=== PATIENT | male | born 1955 | race Caucasian/White ===

== ENCOUNTER 2018-12-18 15:47 | Outpatient (RCR) | payer OTHER, SELFPAY ==
[2018-12-12 18:00] VITALS: BMI 49.4
== END 2018-12-27 23:59 ==
LOC: NS 15:47
PROVIDERS: Visit Provider Physician Assistant
DX: E66.9 Obesity, unspecified (principal); Z71.3 Dietary counseling and surveillance
CPT/HCPCS: 97802

== ENCOUNTER 2019-01-05 09:51 | Day surgery (SDC) | payer OTHER, SELFPAY ==
[2018-12-01 15:01] VITALS: BMI 49.4
--- NOTE | 2018-12-12 06:07 | HP_ITS ---
Intake Vital Signs 12/12/18 Body Mass Index (BMI) 49.4 Intake Visit Reasons: discuss phlebectomy Chief Complaint: discuss phlebectomy Ethnographer Required: No Is patient in pain?: No Allergies ceftriaxone [From Rocephin] Allergy (Intermediate, Verified 12/12/18 15:46) Hives Medications alprazolam 0.5 mg tablet 0.5 mg PO TID tab 12/01/18 [History Confirmed 12/12/18] carvedilol 3.125 mg tablet 3.125 mg PO BID 12/01/18 [History Confirmed 12/12/18] furosemide 40 mg tablet 40 mg PO DAILY 12/01/18 [History Confirmed 12/12/18] hydrocodone 5 mg-acetaminophen 325 mg tablet 1 tab PO BID tab 12/01/18 [History Confirmed 12/12/18] lisinopril 2.5 mg tablet 2.5 mg PO DAILY 12/01/18 [History Confirmed 12/12/18] omeprazole 20 mg tablet,delayed release 20 mg PO DAILY 12/01/18 [History Confirmed 12/12/18] rivaroxaban 20 mg tablet 20 mg PO DAILY 12/01/18 [History Confirmed 12/12/18] spironolactone 25 mg tablet 12.5 mg PO DAILY tab 12/01/18 [History Confirmed 12/12/18] [facility] Medical History Stasis dermatitis of right lower extremity due to peripheral venous hypertension (Acute) Acid reflux (Acute) Anxiety (Acute) Arthritis (Acute) Atrial fibrillation (Acute) Heart disease (Acute) History of blood clots (Acute) Obesity (Acute) Hypertension (Chronic) Surgical History History of total left knee replacement (Acute) history biteral vein stripping (Acute) history lateral heel spur removal (Acute) Family History Sister Arthritis Breast cancer Diabetes Father Cancer Lung cancer CVA (cerebral vascular accident) Mother Heart disease Hypertension Social History (Updated 12/12/18 @ 18:07 by Luis Huddleston MD) Smoking Status: Current every day smoker alcohol intake: current substance use type: does not use HPI HPI HPI: JOLIE RÍOS, is a 63 M who presents to the office today for HPI HPI Surgical H&P: Yes HPI: JOLIE RÍOS, is a 63 M who presents to the office today for HPI: JOLIE RÍOS, is a 63 M who presents to the office today for surgical consultation regarding a focus of stasis dermatitis involving his right anterior knee. The patient is referred by Dr. Bertrand Lebron. The patient is being considered for a right total knee replacement. Body weight is 335 pounds with a BMI of 49.4. He has had a previous left total knee replacement. There is a vertical midline incision at that location. A written copy of my surgical note will return to Dr. Lebron There is felt to be a vascular skin lesion involving the infrageniculate area of the right knee. It is requested that this 2 x 2 centimeter area of erythema be evaluated prior to knee replacement. The patient states that he has had some previous venous work with what sounds like a degree of vein ligation and stripping. ROS General General: No weight change, appetite, fatigue, colon cancer, breast cancer or weakness HEENT HEENT: No difficulty swallowing, eye injury, eye surgery, swollen glands or hoarseness Endo Endocrine: No thyroid disease, diabetes mellitus, thyroid cancer, Hair loss, heat intolerance or cold intolerance Skin Skin: No rash or changing moles Breast Breast: No left breast lump, right breast lump, nipple discharge, breast pain, abnormal mammogram, abnormal US or breast enlargement Musc Musculoskeletal: Yes arthritis; no back problems, rheumatoid arthritis, gout or joint pain Cardio Cardiovascular: Yes heart disease, atrial fibrillation and high blood pressure; no murmur, pacemaker, heart attack, heart stent, palpitations, shortness of breat with exertion or chest pain Psych Psychiatric: Yes anxiety; no depression or hearing voices Resp Respiratory: No shortness of breath, No sleep apnea, No cough, No COPD, No asthma, No emphysema, No wheezing Gastro Gastrointestinal: No abdominal pain, No nausea or vomiting, No diarrhea, No constipation, No blood in stool, Yes acid reflux, No hemorrhoids, No ulcers, No gallbladder problem, No black,tarry stools Phill Hematologic: Yes blood thinners, No blood disorders, No bleeding, No anemia, Yes blood clots Neuro Neurologic: No weakness Exam Const General: cooperative Nutritional Appearance: obese morbidly obese Orientation: alert, awake, oriented x3 Chest Breast Palpation: No nipple discharge Other: Increased anterior posterior diameter Resp Other: Scattered wheeze noted particularly on the right Cardio Rate: regular rate Rhythm: regular rhythm Heart Sounds: no murmurs GI Other: Markedly overweight no internal organs can be appreciated Extrem Other: Markedly overweight bilateral lower extremities with nonpitting 2+ edema at the ankles. Multiple areas of varicosities involving the thighs and lower extremities. 2 x 2 cm diameter skin lesion with slight keratosis inferior and slightly lateral to the right knee and patella Assessment & Plan Problems 1. Stasis dermatitis of right lower extremity due to peripheral venous hypertension I87.321 Plan 1. Stasis dermatitis of right lower extremity due to peripheral venous hypertension I87.321 Plan Focal area of suspected stasis dermatitis of right lower extremity. I do not have a means of uncomplicated resolution of this area. Patient has a BMI of 49.4. He has multiple areas of varicosities with lichenification of his skin. I suspect that this area likely harbors staff. It is not feasible because of its size to attempt an excision. Certainly he could be referred to dermatology but I suspect topical treatment of this area also would be difficult to achieve resolution. He has a significant conglomerate of varicosities involving all parts of his lower extremity extending around the knee the patella area the infrageniculate area. It would be very difficult to determine what is actually supplying this area. One could attempt a expiration superior to this with some stab phlebotomy but again I have instructed the patient that I have no way of knowing whether this would make any improvement whatsoever. Although I am not concerned regarding hemorrhage regarding this lesion I would be more concerned about chronic infection. I do not have an uncomplicated resolution. I have contacted Dr. Bertrand Lebron. He does not believe that there is any means feasible to perform the knee replacement procedure and keep the incision away from this area of stasis dermatitis. He has similar concerns as to I regarding the risk of infection. He does not believe that a robotic approach will add any benefit. I explained this to the patient in detail today. The only offering I have for the patient is to consider ultrasound inspection at the time of surgery with anticipated phlebectomy of veins involved in the area of the stasis dermatitis. I have discussed with him the technique, benefit, risks, alternatives. Absolutely no guarantees of success or improvement is being offered. The patient and Dr. Bertrand Lebron are well aware that this may or may not assist with improving this area. The patient has had an opportunity to ask and have questions answered. Again I will recommend to the patient dermatology consultation in the interim. The patient desires to schedule proceed with an attempt at surgical removal of local vein clusters. His Xarelto will have to be held 48 hours preintervention. CC: Dr. Bertrand Huddleston M.D., F.A.C.S. Coding Level of Care Code Off vis,est,level 2 Diagnoses Stasis dermatitis of right lower extremity due to peripheral venous hypertension I87.321 12/12/18 1807 <Electronically signed by Luis barron MD> Date _ Luis Huddleston MD I have re-examined the patient. There are no clinical changes since date of exam.
[2018-12-12 18:00] VITALS: BMI 49.4
--- NOTE | 2019-01-01 15:35 | EKG12_ITS ---
Test Reason : PRE OP Blood Pressure : / mmHG Vent. Rate : 076 BPM Atrial Rate : 081 BPM P-R Int : 000 ms QRS Dur : 080 ms QT Int : 362 ms P-R-T Axes : 000 021 013 degrees QTc Int : 407 ms Atrial fibrillation with premature ventricular or aberrantly conducted complexes Nonspecific ST abnormality , probably digitalis effect Abnormal ECG Confirmed by OSCAR ROTH ([id number]), food expeditor GAYATHRI SOUZA ([id number]) on 01/03/2019 3:13:13 PM Referred By: Luis Huddleston Confirmed By:OSCAR ROTH
[2019-01-01 16:20] LABS: Hematocrit 41.5 % (40-54); Hemoglobin 14.4 g/dL (13.0-16.5); Mean Corp Hgb Conc 34.7 g/dL (32-36); Mean Corpuscular Volume 100.7 fL (80-94); Mean Platelet Vol. 9.6 fl (6.2-12.0); Platelet Count 175 K/mm3 (150-450); RBC Distribution Width CV 13.1 % (11.6-14.6); RBC Distribution Width SD 48.6 fl (35.1-43.9); Red Blood Count 4.12 M/mm3 (4.6-6.2); White Blood Count 7.5 K/mm3 (4.4-11.0)
[2019-01-01 16:59] LABS: Anion Gap 6 (5-15); BUN 31 mg/dL (7-18); BUN/Creat Ratio 18.6 RATIO (10-20); Calcium,Total 9.1 mg/dL (8.5-10.1); Chloride 100 mmol/L (98-107); Creatinine, Serum 1.67 mg/dL (0.70-1.30); EST Glomerular Filtration Rate 44 mL/min (>60); Est Glom Filt Rate - Afr Amer 54 mL/min (>60); Glucose 90 mg/dL (74-106); Potassium 3.8 mmol/L (3.5-5.1); Sodium Level 135 mmol/L (136-145)
[2019-01-05 10:22] VITALS: BP 129/68; PULSE 54; RESP 18; TEMP 36.3; O2SAT 99; BMI 49.6
--- NOTE | 2019-01-05 12:00 | VE_PTH ---
PATIENT: JOLIE RÍOS LOC: [facility] U#:[id number] AGE/SX: 63/M ROOM: RE01/05/[address]: Dr. Luis Huddleston MD : 1955 BED: DIS: 01/05/2019 SPEC #: [id number] RECD: 01/05/19 14:46 STATUS: FRANC RECharlene #: [id number] BLAS: 01/05/19 12:[address]: Luis Huddleston DEPT: SURGICAL PATHOLOGY RECD BY: Gonzalez Cobb ENTERED: 01/08/19 10:19 SP TYPE: VEIN(S) CHANDA DR: Dr. [place] DO Tissues: Vein, NOS Procedures: Surgery Specimen Level III HEADER OPERATION: Right lower extremity pretibia stab phlebectomy PRE-OP DIAGNOSIS: Stasis dermatitis of right lower extremity due to peripheral venous hypertension TISSUE SUBMITTED: Right lower leg vein segments MICROSCOPIC DIAGNOSIS Right lower leg vein segments, vein stripping: Ectatic segments of vein. AM:damaso 01/09/19 COMMENT The findings are consistent with varicose veins. Clinical correlation is suggested. MICROSCOPIC DESCRIPTION Slides are reviewed. GROSS DESCRIPTION Received in fixative is one container labeled with the patient's name and designated right lower leg vein segments. The specimen consists of two irregular fragments of light to dark joshi soft tissue that in aggregate measure 1.7 x 1.5 x 0.3 cm. The specimen is sectioned and totally submitted in one cassette. / AM:damaso 01/08/19 TC:5 CPT: 79198
[2019-01-05] MEDS: Bupivacaine Mpf 0.5% 30 ML VIAL (13:21)
--- NOTE | 2019-01-05 13:26 | OP.PCM_ITS ---
Problem List (1) Stasis dermatitis of right lower extremity due to peripheral venous hypertension Status: Acute Report of Operation Date of Procedure: 01/05/19 Pre-Operative Diagnosis: Stasis dermatitis right pretibial Post-Operative Diagnosis: Same Surgery/Procedure Performed:: Microphlebectomy right pretibial leg Description of Surgical Findings:: Timeout and informed consent was obtained. 63-year-old gentleman was taken to the operating room. He was placed on the table. Clindamycin 900 mg are given intravenous preoperatively. He underwent general anesthesia. The right pretibi al area was sterilely prepped and draped. He has an area of stasis dermatitis that is prohibiting a total knee replacement. Small stab incisions were created. I performed this after iodine ultrasound localization which I thought demonstrated defeating superficial veins. Using mosquito clamps and hemostats I did a microphlebectomy of the engorged veins and varicose veins particularly beneath the lesion. I felt that I had good clearance. 5 separate incisions were created. Specimens were submitted for analysis. The wounds were closed with interrupted 4-0 Monocryl subdermal stitches. The yudelka-incisional was anesthetized 0.5% Marcaine a total of 30 cc was used. Steri-Strips Telfa and OpSite dressings applied followed by KALYANI support hose. Sponge and instrument and needle counts were reported the surgeon be correct. Blood loss minimal. The patient was taken to the recovery area in satisfactory condition without apparent complication. Specimen fragments of vein. Drains none. Blood loss minimal. Luis Huddleston M.D., F.A.C.S. Type of Anesthesia:: General Anesthesiologist: Jaya Valdez
--- NOTE | 2019-01-05 13:29 | DCINST_ITS ---
Discharge Diet: Light diet - advance as tolerated - if you have questions about your diet instructions, please talk to you doctor. Discharge Activity: May Not Drive - for 3-5 days or while taking narcotic pain medicine. May shower in (days): 3 Lifting Restrictions: 10 pounds Call your doctor if your incision/area has: Continuous Slow Oozing, Sudden Increased Bleeding, Increased Pain/ Swelling, Increased Redness, Foul Smelling Discharge Call your doctor if you observe: Fever of 101 or Higher Suture Line Care: Avoid Pulling/Pushing, Avoid Pinching/Bending Additional Dressing/Incision Instructions:: Elevate your right leg to improve clot comfort and limit swelling and avoid bleeding. Please utilize your support hose [id number] if you can tolerate. You may remove the support hose if you have the sense that they are too tight. Allergies/Adverse Reactions: Allergies ceftriaxone [From Rocephin] Allergy (Intermediate, Verified 01/05/19 10:08) Hives Medications to take at Discharge alprazolam 0.5 mg tablet 0.5 mg PO TID PRN tab 12/01/18 carvedilol 3.125 mg tablet 3.125 mg PO BID 12/01/18 furosemide 40 mg tablet 40 mg PO DAILY 12/01/18 hydrocodone 5 mg-acetaminophen 325 mg tablet 1 tab PO BID PRN tab 12/01/18 lisinopril 2.5 mg tablet 2.5 mg PO QHS 12/01/18 omeprazole 20 mg tablet,delayed release 20 mg PO DAILY 12/01/18 rivaroxaban 20 mg tablet 20 mg PO DAILY 12/01/18 spironolactone 25 mg tablet 12.5 mg PO DAILY tab 12/01/18 Primary Care Physician: [place] [Primary Care Provider] - Test Results: Test results from this visit will be discussed in further detail at your follow- up appointment, if applicable. Please Follow Up With: Luis Huddleston MD - [phone] When: Call to make an appointment to be seen in about 10 days.
[2019-01-05 13:32] VITALS: BP 108/61; BP 129/68; PULSE 59; RESP 16; TEMP 36.2; O2SAT 99
[2019-01-05 13:40] VITALS: BP 108/61; BP 129/68; PULSE 55; RESP 14; O2SAT 97
[2019-01-05 13:46] VITALS: BP 104/65; BP 129/68; PULSE 51; RESP 16; O2SAT 98
[2019-01-05 13:54] VITALS: BP 129/68; BP 96/64; PULSE 52; RESP 14; TEMP 36.2; O2SAT 97
[2019-01-05 14:27] VITALS: BP 112/46; BP 129/68; PULSE 61; RESP 18; TEMP 36.3; O2SAT 98
== END 2019-01-05 14:35 | disposition home or self-care (01) ==
LOC: SDC 09:53 → AC 09:54
PROVIDERS: Family Provider Family Medicine; PCP Family Medicine; Referring Provider Surgery; Visit Provider Surgery
PROC: (CPT 37799; principal; 2019-01-05 11:45)
DX: I87.321 Chronic venous hypertension (idiopathic) with inflammation of right lower extremity (principal); I87.2 Venous insufficiency (chronic) (peripheral); Z88.1 Allergy status to other antibiotic agents; F17.200 Nicotine dependence, unspecified, uncomplicated; Z68.42 Body mass index [BMI] 45.0-49.9, adult; Z96.652 Presence of left artificial knee joint; I48.91 Unspecified atrial fibrillation; E66.9 Obesity, unspecified
CPT/HCPCS: 01520; 37799; 36415; 80048; 85027; 88304; 93005; J7120; J2405

== ENCOUNTER 2019-01-16 09:00 | Outpatient (RCR) | payer OTHER, SELFPAY ==
[2018-12-12 18:00] VITALS: BMI 49.4
== END 2019-01-27 23:59 ==
LOC: NS 09:00
PROVIDERS: Visit Provider Physician Assistant
DX: E66.9 Obesity, unspecified (principal); Z71.3 Dietary counseling and surveillance
CPT/HCPCS: 97803

== ENCOUNTER 2019-02-20 09:00 | Outpatient (RCR) | payer OTHER, SELFPAY | END 2019-02-26 23:59 | LOC: NS 09:00 | PROVIDERS: Family Provider Family Medicine; PCP Family Medicine; Visit Provider Physician Assistant | DX: E66.9 Obesity, unspecified (principal); Z71.3 Dietary counseling and surveillance | CPT/HCPCS: 97803 ==

== ENCOUNTER 2019-03-19 09:00 | Outpatient (RCR) | payer OTHER, SELFPAY | END 2019-03-29 23:59 | LOC: NS 09:00 | PROVIDERS: Family Provider Family Medicine; PCP Family Medicine; Visit Provider Physician Assistant | DX: E66.9 Obesity, unspecified (principal); Z71.3 Dietary counseling and surveillance | CPT/HCPCS: 97803 ==

== ENCOUNTER 2019-04-10 08:53 | Outpatient (RCR) | payer OTHER, SELFPAY ==
[2019-04-05 07:28] VITALS: BMI 49.6
== END 2019-04-10 23:59 | disposition home or self-care (01) ==
LOC: NS 08:53
PROVIDERS: Family Provider Family Medicine; PCP Family Medicine; Visit Provider Physician Assistant
DX: Z71.3 Dietary counseling and surveillance (principal); E66.9 Obesity, unspecified
CPT/HCPCS: 97803

== ENCOUNTER 2019-04-30 07:26 | Observation (INO) | payer OTHER, SELFPAY ==
[2019-04-11 11:20] VITALS: BP 131/74; PULSE 67; RESP 18; TEMP 36.1; O2SAT 99; BMI 46.4
--- NOTE | 2019-04-11 11:51 | SDCEKG_ITS ---
Test Reason : Blood Pressure : / mmHG Vent. Rate : 055 BPM Atrial Rate : 394 BPM P-R Int : 000 ms QRS Dur : 084 ms QT Int : 430 ms P-R-T Axes : 000 015 031 degrees QTc Int : 411 ms Atrial fibrillation with slow ventricular response with premature ventricular or aberrantly conducted complexes Abnormal ECG Confirmed by MARCOS MYERS, SARIKA ([id number]), map editor ATL OLVERA ([id number]) on 04/18/2019 2:13:00 PM Referred By: Rama Donato Confirmed By:SARIKA RODRÍGUEZ MD
--- NOTE | 2019-04-11 12:25 | RAD_ITS ---
STUDY: X-RAY CHEST REASON FOR EXAM: Male, 63 years old. Hypertension and wheezing. TECHNIQUE: PA and lateral views of the chest. COMPARISON: None. FINDINGS: Hyperinflation. The lungs are clear. There is no demonstrated pleural abnormality. Normal size heart. Normal mediastinum and romel. Normal visualized pulmonary arteries. There is atherosclerotic tortuosity of the aortic arch and descending thoracic aorta. There are diffuse degenerative changes of the visualized thoracic spine. Normal visualized ribs, clavicles, and shoulders. There is no demonstrated abnormality of the visualized soft tissue structures of the upper abdomen. RAD/Chest PA and Lateral IMPRESSION: Hyperinflation. Electronically Signed: Jamel Evans, at 13:16 EST , Service support ,
[2019-04-11 12:35] LABS: Hematocrit 42.1 % (40-54); Hemoglobin 13.9 g/dL (13.0-16.5); Mean Corpuscular Hgb 33.9 pg (27.0-32.0); Mean Corpuscular Volume 102.7 fL (80-94); Mean Platelet Vol. 9.4 fl (6.2-12.0); Platelet Count 169 K/mm3 (150-450); RBC Distribution Width CV 12.7 % (11.6-14.6); RBC Distribution Width SD 47.5 fl (35.1-43.9); White Blood Count 6.3 K/mm3 (4.4-11.0)
[2019-04-11 13:06] LABS: Anion Gap 5 (5-15); BUN 19 mg/dL (7-18); BUN/Creat Ratio 18.3 RATIO (10-20); Calcium,Total 8.9 mg/dL (8.5-10.1); Chloride 103 mmol/L (98-107); Creatinine, Serum 1.04 mg/dL (0.70-1.30); EST Glomerular Filtration Rate 77 mL/min (>60); Est Glom Filt Rate - Afr Amer 93 mL/min (>60); Estimated Creatinine Clearance 75.07 ml/min; Glucose 94 mg/dL (74-106); Potassium 3.9 mmol/L (3.5-5.1); Sodium Level 136 mmol/L (136-145)
[2019-04-29 00:22] VITALS: BMI 49.6
[2019-04-30] VITALS (10 sets, daily range): BP systolic 104–128; BP diastolic 48–95; PULSE 55–89; RESP 16–18; TEMP 36.3–37.1; O2SAT 93–100; BMI 46.4
[2019-04-30 06:15] LABS: Bedside Glucose 84 mg/dL (70-110)
[2019-04-30] MEDS: Scopolamine 1mg/72hr Patch 1 PATCH TRANSDERM. (06:15)
[2019-04-30] MEDS: Gabapentin 600 MG Tablet PO (06:15)
[2019-04-30] MEDS: Acetaminophen 500 MG Tablet 1000 MG PO ×3 (06:15→22:34)
[2019-04-30] MEDS: Magnesium Sulfate 4gm/100mL 4 GM/100 ML IV.SOLN. IV (06:56)
[2019-04-30] MEDS: Lactated Ringers 1,000 ML 100 ML IV (06:57)
--- NOTE | 2019-04-30 07:15 | KNEE_PTH ---
PATIENT: JOLIE RÍOS LOC: [facility] U#:[id number] AGE/SX: 63/M ROOM: [facility] RE04/30/[address]: Dr. Bertrand Lebron MD : 1955 BED: 1 DIS: 05/01/2019 SPEC #: [id number] RECD: 04/30/19 10:53 STATUS: FRANC REQ #: [id number] BLAS: 04/30/19 07:[address]: Bertrand Lebron DEPT: SURGICAL PATHOLOGY RECD BY: Otoniel Sibley ENTERED: 04/30/19 11:32 SP TYPE: TOTAL KNEE OTHR DR: Dr. [place], [place], [place] Tissues: Knee, NOS Procedures: Decalcification bone/plaque Surgery Specimen Level IV HEADER OPERATION: Total knee replacement PRE-OP DIAGNOSIS: Right knee primary osteoarthritis TISSUE SUBMITTED: Bone and soft tissue right knee MICROSCOPIC DIAGNOSIS Bone and soft tissue, right knee, total knee replacement/resection: Pieces of bone with degenerative osteoarthritic changes. Fibroadipose tissue, fibroconnective tissue and reactive synovial tissue. NEDRA:damaso 05/03/19 MICROSCOPIC DESCRIPTION Slides are reviewed. GROSS DESCRIPTION Received is one container designated bone and soft tissue right knee. The specimen consists of multiple fragments of joshi-yellow bone measuring in aggregate 12 x 13 x 4 cm. Also in the specimen container are multiple fragments of yellow-white soft tissue measuring in aggregate 9.5 x 7 x 3 cm. A number of bony fragments contain articular surfaces consistent with tibial plateau and femoral condyle and displaying prominent osteophyte formation, eburnation, and bone erosion. Fifth Hand sections are submitted in two cassettes as follows: 1 - soft tissue, 2 - bone after decalcification. / NEDRA:damaso 04/30/19 TC:5 CPT: 56959, 68427
--- NOTE | 2019-04-30 07:28 | RAD_ITS ---
STUDY: X-RAY - RIGHT KNEE REASON FOR EXAM: Male, 63 years old. Total knee replacement. TECHNIQUE: AP and lateral view(s) of the knee. COMPARISON: None. FINDINGS: Normal visualized distal femur. Normal visualized proximal tibia and fibula. Normal proximal tibiofibular articulation. The patient is status post total knee replacement. There is good alignment. Postoperative soft tissue changes. RAD/Knee 1 or 2 Views IMPRESSION: Status post right total knee replacement. There is good alignment. Postoperative soft tissue changes. Electronically Signed: Jamel Evans, at 13:38 EST , Service support ,
--- NOTE | 2019-04-30 09:11 | PRO.PCM_ITS ---
Procedure Report Date of Procedure: 04/30/19 Preoperative diagnosis: 6 knee severe primary osteoarthritis Postoperative diagnosis: Same Title of procedure : [Right] total knee replacement Surgeon: Bertrand Lebron MD Power And Recovery Supervisor: Rama Donato PA-C Anesthesia: General, adductor canal nerve block Anesthesiologist: Dr. Segura Special medications: Ancef, tranexamic acid wash, Decadron Indications for surgery: Patient is a [63]-year-old [male] with a history of knee arthritis appropriately treated and failed conservative measures and wished to proceed with total knee replacement. Patient was cleared for surgery by the medical doctor and has been evaluated by the anesthesia staff Findings: Intraoperative findings showed severe arthritis of the knee. Patient underwent knee replacement using Zadspacen total knee components. Size [8] femur, size [8] tibia, [35X10] asymmetric X3 patella, size [8-11 PS] X3 tibial polyethylene insert, knee was nicely balanced. Patella tracked well. Patient underwent standard wound closure in layers. Vicryl and strata fix sutures utilized. video library assistant, physician liaison inspection laboratory assistant, was utilized throughout the entire procedure. They were vital in helping with patient positioning, holding of retractors, exposing the tissues adequately for safe completion of the procedure including cutting of the bone, helping magistrate judge appropriate alignment and sizing of the components, implantation of the components, as well as wound closure, bandage application, and safe patient transfer. Without hand frame surgical elastic knitter, physician liaison inspection laboratory assistant, surgical time would have been significantly increased, and surgical outcome could have been less optimal. Description of procedure: The patient was taken to the OR, transferred to the OR table. They were given a spinal anesthetic. Ancef was given IV preoperatively. Tranexamic acid was given IV preoperatively. Well-padded tourniquet was applied to the upper thigh of the operative leg. Nonoperative leg had a KALYANI hose and SCD on throughout. Operative limb was prepped padded and draped in usual orthopedic sterile fashion for the procedure. We began by injecting the pain relieving solution in the anterior superior aspect of the knee region. The limb was exsanguinated, and the tourniquet was applied to 300 mmHg. Made a midline incision through skin, subcutaneous tissue, bringing down us on the extensor mechanism. Medial parapatellar arthrotomy was carried out. Straw-colored joint fluid was evacuated. We raised a sleeve of tissue off the upper medial tibia. Resected some of the infrapatellar fat pad. We remove degenerative medial and lateral meniscus. Removed bone spurs from about the joint. We removed tissue off the anterior aspect of the distal femur. Patella was translated laterally and/or everted as needed throughout the procedure. ACL was resected. PCL was preserved. Collateral ligaments were preserved. Physician placed the retractors and liaison inspection laboratory assistant held retractors protecting above ligaments throughout the procedure. Drill was placed up the distal femur. Flex guide khadar was placed up the femoral canal. We resected 8 mm off of the distal femur. 6? valgus cut. Next cutting block was applied to the front of the femur. 3? of external rotation . We sized off that block and decided on the appropriate size femur. 4-in-1 cutting block was applied to the distal femur and held in place with 2 pins. Power And Recovery Supervisor again held retractors to protect the soft tissues while surgeon performed anterior, posterior, and chamfer cuts. Bony fragments were removed. PCL retractor was placed and collateral ligament protectors placed by the surgeon, held by the assistance. Tibial external alignment guide was utilized under standard technique going down the shaft of the tibia, to the base of the second metatarsal. Appropriate posterior slope was built in. Power And Recovery Supervisor help magistrate judge alignment. We went 2 mm off the deficient side of the tibia. Cutting block was held in place with 3 pins. Again checked the external alignment. Tibial cut carried out with a saw while the liaison inspection laboratory assistant held retractors protecting the soft tissues about the anterior, medial, lateral, and posterior knee. Bone fragment removed. We then utilized the cutting guide for the distal femur box cut under standard technique. Trial was placed and removed. We then sized off the upper tibia with the help of the liaison inspection laboratory assistant. We then checked flexion extension gaps finding them to be adequate and equal. Next the distal femoral trial was applied. Tibial tray was allowed to freefloat with a 9 mm insert. Knee was flexed and extended an external alignment guide is utilized. Tibial trial was pinned in place. Drill holes were placed into the distal femoral trial and it was removed. Punch was used on the upper tibial component and that was removed. The sclerotic bone was softened with a sharp pin. Bone spurs removed from the posterior medial and posterior lateral aspect of the femur while the liaison inspection laboratory assistant lifted up on the distal femur and exposed each compartment. Patella was everted and measured and appropriate resection was carried out while the liaison inspection laboratory assistant held the guide and patella in good position. Patellar remnant measured to be at or just greater than 14 mm. Patella was sized. Clamp was utilized. 3 drill holes were placed through the clamp held by the liaison inspection laboratory assistant. Trial patella was placed and removed. Bleeding was controlled at the back of the knee with the bovey. Posterior knee soft tissues were carefully injected with pain relieving solution. Components were checked and open. Two full batches of bone cement were mixed. Knee was thoroughly irrigated by the liaison inspection laboratory assistant while surgeon fashioned a bone plug that was placed in the femoral canal hole. The bony surfaces cleaned and dried. When the cement was of the appropriate texture the tibia, femur, and then patella was cemented in place. Power And Recovery Supervisor held retractors exposing the bony surfaces of the tibia and femur which were hammered in position. Patella clamped into position. The excess bone cement removed. A trial insert applied to the tibia. Knee was held in full extension while the cement hardened. While the cement was hardening pain relieving solution was injected throughout the knee. When cement was fully hardened tourniquet was deflated. We re-trialed with the help of the liaison inspection laboratory assistant and then placed the appropriate sized polyethylene component. We thoroughly irrigated and debrided the knee. Bleeding controlled with the Bovie. Knee was again thoroughly irrigated. Patella noted to track nicely. We repaired the arthrotomy with a combination of #1 Vicryl and #2 strata fix. We did a mid layer of 1 Vicryl. We then did inverted 2-0 vicryl . We then applied dermabond. Mepilex dressing applied. KALYANI hose and SCDs applied. Patient was awoken from their anesthetic, transferred back to their own bed and recovery room in satisfactory condition. Second dose of IV Tranexamic acid was given while closing wound. Patient was admitted, appropriate IV antibiotic to be utilized as well as medication for DVT prevention. Hopeful discharge in 1 days. Hospitalist service and Physical therapy will be consulted. This note was generated with [employer] software. It may contain incorrect words, spelling, and punctuation that were not noted in checking the note before signing.
[2019-04-30] MEDS: Lactated Ringers 1,000 ML 125 ML IV (10:29)
[2019-04-30] MEDS: Cefazolin 1 GM/50 ML BAG IV ×2 (14:18→19:01)
--- NOTE | 2019-04-30 14:49 | CON.PCM_ITS ---
Problem List (1) Congestive heart failure (CHF) Status: Chronic (2) Status post total right knee replacement Status: Acute (3) Osteoarthritis Status: Chronic (4) Anxiety Status: Chronic (5) History of DVT (deep vein thrombosis) Status: Chronic (6) Hypertension Status: Chronic (7) Chronic atrial fibrillation Status: Chronic Reason for Consult Date of Consultation: 04/30/19 Reason for Consultation: Postoperative medical management. History of Present Illness: The patient is a 63 year old M patient with past medical history as mentioned above admitted today to the hospital after he underwent elective right total knee replacement for severe right knee osteoarthritis and I am seeing this patient in consultation for postoperative medical management. At this time, patient denied any right knee pain. He is feeling good, no complaints. His vital signs are stable. He had a history of chronic atrial fibrillation and he has been on Coreg for rate control and Xarelto for anti-coagulation. He had a history of chronic congestive heart failure, unspecified type and he has been on beta-blockers, lisinopril and diuretics and his volume status has been stable. He has a history of hypertension which seems to be under control with Coreg, lisinopril and diuretics. He had a history of DVT in the past and he has been on Xarelto as well. At this time, his vital signs are stable. His preoperative routine blood work that was done on April 11, 2019 was unremarkable. CBC and BMP for tomorrow was ordered. Past Medical History Past Medical History (Chronic Problems): Chronic Problems (Last Updated 04/30/19 @ 14:45 by Cindi Ordaz MD) Congestive heart failure (CHF) (Chronic) Osteoarthritis (Chronic) Anxiety (Chronic) History of DVT (deep vein thrombosis) (Chronic) Hypertension (Chronic) Chronic atrial fibrillation (Chronic) Medical History: Medical History (Last Updated 04/30/19 @ 14:45 by Cindi Ordaz MD) Anxiety F41.9 Arthritis M19.90 Atrial fibrillation I48.91 Obesity E66.9 Hypertension I10 Allergies ceftriaxone [From Rocephin] Allergy (Intermediate, Verified 04/11/19 11:10) Hives Home Medications: Ambulatory Orders Medication Instructions Recorded alprazolam 0.5 mg tablet 0.5 mg PO TID PRN tab 12/01/18 carvedilol 3.125 mg tablet 3.125 mg PO BID 12/01/18 furosemide 40 mg tablet 40 mg PO DAILY 12/01/18 hydrocodone 5 mg-acetaminophen 325 1 tab PO BID PRN tab 12/01/18 mg tablet lisinopril 2.5 mg tablet 2.5 mg PO QHS 12/01/18 omeprazole 20 mg tablet,delayed 20 mg PO DAILY 12/01/18 release rivaroxaban 20 mg tablet 20 mg PO DAILY 12/01/18 spironolactone 25 mg tablet 12.5 mg PO DAILY tab 12/01/18 triamcinolone acetonide 0.5 % 1 applic TOPICAL BID #15 g 04/05/19 topical cream Surgical History: Surgical History (Last Updated 04/30/19 @ 14:45 by Cindi Ordaz MD) History of total left knee replacement Z96.652 history biteral vein stripping Surgical History: total knee arthroplasty, - - Bilateral stripping of veins for varicose veins. Psychiatric History: Anxiety Lives: Spouse/ Significant Other Smoking Status: Current every day smoker Tobacco Use: Cigars, Chew Alcohol: Rare Drugs: None - *Family History Maternal Family History: Family History (Last Reviewed 04/05/19 @ 07:27 by Diane Upton) Sister Arthritis Breast cancer Diabetes Father Cancer CVA (cerebral vascular accident) Mother Heart disease Hypertension History Items: No pertinent history Paternal Family History: Family History (Last Reviewed 04/05/19 @ 07:27 by Diane Upton) Sister Arthritis Breast cancer Diabetes Father Cancer CVA (cerebral vascular accident) Mother Heart disease Hypertension History Items: No pertinent history Review of Systems Constitutional: Denies: Anorexia, Chills, Fever, Weakness Eyes: Denies: Blurred vision, Double vision, Drainage, Redness HEENT: Denies: Difficulty Hearing, Ear Pain, Eye Pain, Nasal Congestion, Sore Throat Cardiovascular: Denies: Chest Pain, Claudication, Chest Pressure, Chest Tightness, Heaviness, Palpitations, Syncope Respiratory: Denies: Cough, Pleuritic Pain, Shortness of Breath, Sputum production, Wheezing Gastrointestinal: Denies: Abdominal Pain, Constipation, Diarrhea, Nausea, Vomiting Genitourinary: Denies: Dysuria, Frequency, Hematuria Musculoskeletal: Denies: Arm Pain, Back Pain, Foot Pain Skin: Denies: Dryness, Rash Neurological: Denies: Balance problems, Blurred vision, Double vision, Change in Speech, Slurred speech, Confusion, Headaches, Incoordination, Numbness Psychiatric: Reports: Anxiety. Denies: Depression Endocrine: Denies: Change in Body Habitus, Polydipsia, Polyuria Patient Problems: Active and Suspected Problems (Last Updated 04/30/19 @ 14:45 by Cindi Ordaz MD) Status post total right knee replacement (Acute) - Physical Exam Vitals/I&O's: Vital Signs Temp Pulse Resp BP Pulse Ox 98.5 F 55 L 18 114/95 H 95 04/30/19 13:59 04/30/19 13:59 04/30/19 13:59 04/30/19 13:59 04/30/19 13:59 Oxygen Delivery Method Room Air Weight: 323 lb 13.745 oz Body Mass Index (BMI) 46.4 Intake and Output for Last 24 Hours 04/28/19 04/29/19 04/30/19 23:59 23:59 23:59 Intake Total 1435 / 1435 Balance 1435 / 1435 General: Alert, Oriented x3, Cooperative, No apparent distress HEENT: Atraumatic, PERRLA, EOMI, Normocephalic Oral: Moist Mucosa, No Gingival or Mucosal Lesions/ Ulcerations Neck: Supple, No JVD, Negative Carotid Bruits, Trachea Midline, Thyroid Normal Size and Texture Lungs: Clear to auscultation, Normal air movement, No rhonchi, No wheeze, No rales, Diminished Cardiovascular: Normal S1, Normal S2, No murmurs, PMI Normal, Irregular Rate Abdomen: Bowel Sounds Present, Soft, Non Tender, Non-Distended, No Hepato- splenomegaly, Obese Extremities: No clubbing, No cyanosis, Edema - Trace edema. Skin: No rashes, No breakdown Lymphatic: No Cervical, Supraclavicular, or Inguinal Adenopathy Neurological: Cranial nerves II-XII grossly intact, Motor Exam 5/5 strength throughout Psych/Mental Status: Normal Affect, Appropriate, Alert and oriented to time, place, person, mood and affect Laboratory Results 04/30/19 06:09: POC Glucose 84 Current Medications Acetaminophen (Tylenol) 1,000 mg PO Q8 [facility] Last Admin: 04/30/19 14:18 Dose: 1,000 mg Documented by: Alprazolam (Xanax) 0.5 mg PO TID PRN PRN Reason: ANXIETY Carvedilol (Coreg) 3.125 mg PO BID [facility] Dexamethasone Sodium Phosphate (Decadron) 10 mg IV X1 ONE Stop: 05/01/19 08:01 Furosemide (Lasix) 40 mg PO DAILY [facility] Last Admin: 04/30/19 14:19 Dose: Not Given Documented by: Lactated Ringer's () 1,000 mls @ 75 mls/hr IV .[id number] [facility] Stop: 04/30/19 20:49 Last Admin: 04/30/19 10:29 Dose: 125 mls/hr Documented by: Cefazolin Sodium () 1 gm in 50 mls @ 75 mls/hr IV Q6H [facility] Stop: 05/01/19 02:09 Last Admin: 04/30/19 14:18 Dose: 75 mls/hr Documented by: Sodium Chloride () 250 mls @ 15 mls/hr IV .[id number] PRN PRN Reason: Saline Flush Insulin Human Lispro (Humalog Kwikpen (Bkc)) 1 - 6 unit SC Q4H PRN PRN; Protocol PRN Reason: BG>/= 180, SEE PROTOCOL Lisinopril (Zestril) 2.5 mg PO QHS [facility] Ondansetron HCl (Zofran) 4 mg IV Q8H PRN PRN PRN Reason: NAUSEA Oxycodone HCl (Oxyir) 5 - 10 mg PO Q4H PRN PRN PRN Reason: Pain Score 4-10/10 Pantoprazole Sodium (Protonix) 20 mg PO DAILY [facility] Promethazine HCl (Phenergan) 12.5 mg IM Q6H PRN PRN; Protocol PRN Reason: NAUSEA/VOMITING Rivaroxaban (Xarelto) 10 mg PO DAILY@0600 [facility] Senna/Docusate Sodium (Senokot-S, Jolly-Colace) 2 tablet PO BID [facility] Sodium Chloride () 10 - 40 ml IV UD PRN PRN Reason: SALINE FLUSH Spironolactone (Aldactone) 12.5 mg PO DAILYCM [facility] Triamcinolone Acetonide (Triamcinolone Acetonide) 1 applic TOPICAL BID [facility]; Protocol Assessment/Plan All Active Problems (Last Updated 04/30/19 @ 14:45 by Cindi Ordaz MD) Status post total right knee replacement (Acute) This is a 63 years old male patient underwent elective right total knee replacement and I am seeing this patient in consultation for postoperative medical management. #1 status post right total knee replacement: This was done for severe right knee osteoarthritis, postoperative day 0. Currently, patient has no pain. He is on OxyIR PRN for pain. His vital signs are stable. Preoperative routine blood work reviewed and was unremarkable. Repeat CBC and BMP ordered for tomorrow. Orthopedic surgery on the case and managing. #2 chronic atrial fibrillation: Rate is controlled, continue Coreg for rate control and Xarelto for anticoagulation. Patient should be on Xarelto 20 mg p.o. daily starting tomorrow if orthopedic surgery agreed. #3 hypertension: Blood pressure stable, continue Coreg and lisinopril as well as Lasix and Aldactone. #4 chronic congestive heart failure: Clinically stable, compensated, euvolemic. Continue Lasix, Aldactone, Coreg and lisinopril, decrease IV fluids, monitor volume status. #5 history of DVT: Recommend to continue Xarelto 20 mg p.o. daily starting to griffin. #6 anxiety: Continue Xanax as needed. #7 DVT prophylaxis: Currently, patient on Xarelto 10 mg p.o. daily starting tomorrow. I would recommend Xarelto 20 mg p.o. daily starting tomorrow if okay with orthopedic surgery. This note was generated with [employer] dictation software. It may contain incorrect words, spelling, and punctuation that were not noted in checking the note before signing. Code Visit Inpatient E&M: 68083 Init Hosp L2
[2019-04-30] MEDS: Senna/Docusate Sodium 1 Tablet 2 TABLET PO (22:33)
[2019-04-30] MEDS: Lisinopril 2.5 MG Tablet PO (22:33)
[2019-04-30] MEDS: Carvedilol 3.125 MG TABLET PO (22:33)
[2019-05-01] MEDS: Cefazolin 1 GM/50 ML BAG IV (01:52)
[2019-05-01 01:59] VITALS: BP 98/57; PULSE 85; RESP 18; TEMP 37.1; O2SAT 95
[2019-05-01] MEDS: Rivaroxaban 10 MG Tablet PO (06:36)
[2019-05-01] MEDS: Acetaminophen 500 MG Tablet 1000 MG PO (06:36)
[2019-05-01 06:55] LABS: Hematocrit 29.8 % (40-54); Hemoglobin 9.9 g/dL (13.0-16.5); Mean Corp Hgb Conc 33.2 g/dL (32-36); Mean Corpuscular Hgb 34.1 pg (27.0-32.0); Mean Corpuscular Volume 102.8 fL (80-94); Mean Platelet Vol. 9.4 fl (6.2-12.0); Platelet Count 148 K/mm3 (150-450); RBC Distribution Width CV 12.8 % (11.6-14.6); RBC Distribution Width SD 48.1 fl (35.1-43.9); White Blood Count 9.9 K/mm3 (4.4-11.0)
--- NOTE | 2019-05-01 07:14 | PN.ORTHO_ITS ---
Patient Problems: Active and Suspected Problems (Last Updated 04/30/19 @ 14:45 by Cindi Ordaz MD) Status post total right knee replacement (Acute) Subjective: Patient is resting comfortably in chair at bedside during exam. No. Pain has otherwise been fairly well controlled in the right knee. He has been able to urinate on his own. He currently denies chest pain shortness of breath dizziness or calf pain he would like to consider discharge to home later today. Objective: Patient is alert and oriented x3 no acute distress at rest breathing easily without respiratory distress inspection of right knee reveals a Mepilex dressing with one small area of dried bloody drainage at the middle aspect of the dressing. Negative Homans bilaterally without signs of DVT sensation intact light touch pedal pulses present and equal bilaterally patient is able to actively plantar and dorsiflex bilateral feet against resistance neurovascularly intact. Postoperative x-rays were reviewed and are consistent with a cemented right total knee replacement prostheses in good position without evidence of hardware failure loosening - Physical Exam Vitals/I&O's: Vital Signs Temp Pulse Resp BP Pulse Ox 98.8 F 85 18 98/57 L 95 05/01/19 01:59 05/01/19 01:59 05/01/19 01:59 05/01/19 01:59 05/01/19 01:59 Oxygen Delivery Method Room Air Weight: 146.9 kg Body Mass Index (BMI) 46.4 Intake and Output for Last 24 Hours 04/29/19 04/30/19 05/01/19 23:59 23:59 23:59 Intake Total 2535 / 2535 50 / 50 Balance 2535 / 2535 50 / 50 Laboratory Results 05/01/19 06:15: WBC 9.9, RBC 2.90 L, Hgb 9.9 L, Hct 29.8 L, MCV 102.8 H, MCH 34.1 H, MCHC 33.2, RDW Std Deviation 48.1 H, RDW Coeff of Jacoby 12.8, Plt Count 148 L, MPV 9.4 05/01/19 06:15: Sodium Pending, Potassium Pending, Chloride Pending, Carbon Dioxide Pending, Anion Gap Pending, BUN Pending, Creatinine Pending, Est GFR (MDRD) Af Amer Pending, Est GFR (MDRD) Non-Af Pending, BUN/Creatinine Ratio Pending, Glucose Pending, Calcium Pending Current Medications Acetaminophen (Tylenol) 1,000 mg PO Q8 [facility] Last Admin: 05/01/19 06:36 Dose: 1,000 mg Documented by: Alprazolam (Xanax) 0.5 mg PO TID PRN PRN Reason: ANXIETY Carvedilol (Coreg) 3.125 mg PO BID [facility] Last Admin: 04/30/19 22:33 Dose: 3.125 mg Documented by: Dexamethasone Sodium Phosphate (Decadron) 10 mg IV X1 ONE Stop: 05/01/19 08:01 Furosemide (Lasix) 40 mg PO DAILY [facility] Last Admin: 04/30/19 14:19 Dose: Not Given Documented by: Sodium Chloride () 250 mls @ 15 mls/hr IV .[id number] PRN PRN Reason: Saline Flush Insulin Human Lispro (Humalog Kwikpen (Bkc)) 1 - 6 unit SC Q4H PRN PRN; Protocol PRN Reason: BG>/= 180, SEE PROTOCOL Lisinopril (Zestril) 2.5 mg PO QHS [facility] Last Admin: 04/30/19 22:33 Dose: 2.5 mg Documented by: Ondansetron HCl (Zofran) 4 mg IV Q8H PRN PRN PRN Reason: NAUSEA Oxycodone HCl (Oxyir) 5 - 10 mg PO Q4H PRN PRN PRN Reason: Pain Score 4-10/10 Pantoprazole Sodium (Protonix) 20 mg PO DAILY [facility] Promethazine HCl (Phenergan) 12.5 mg IM Q6H PRN PRN; Protocol PRN Reason: NAUSEA/VOMITING Rivaroxaban (Xarelto) 10 mg PO DAILY@0600 [facility] Last Admin: 05/01/19 06:36 Dose: 10 mg Documented by: Senna/Docusate Sodium (Senokot-S, Jolly-Colace) 2 tablet PO BID [facility] Last Admin: 04/30/19 22:33 Dose: 2 tablet Documented by: Sodium Chloride () 10 - 40 ml IV UD PRN PRN Reason: SALINE FLUSH [facility] Triamcinolone Acetonide (Triamcinolone Acetonide) 1 applic TOPICAL BID [facility]; Protocol Last Admin: 04/30/19 22:35 Dose: Not Given Documented by: Medical Necessity - Tobacco Use Smoking Status: Current every day smoker Tobacco Use: Cigars, Chew Assessment/Plan All Active Problems (Last Updated 04/30/19 @ 14:45 by Cindi Ordaz MD) Status post total right knee replacement (Acute) 1. Status post right total knee replacement postoperative day #1 2. Continue OxyIR and scheduled Tylenol for pain control 3. DVT prophylaxis bilateral teds SCDs and plan to continue Xarelto 10 mg 1 p.o. daily until patient follows up with myself in the office next week to re assess the right knee. Concern for continued bleeding at the surgical site if we were to increase to his preoperative dose of 20 mg of Xarelto. 4. Begin PT/OT weightbearing as tolerated right lower extremity with a walker 5. Drop in hemoglobin hematocrit with thrombocytopenia asymptomatic without indication for transfusion 6. Results of BMP pending will review upon posting 7. Encourage incentive spirometry 8. Continue postoperative medical management per hospitalist. 9. Continue discharge planning with case management 10. Patient is orthopedically stable and okay for discharge to home today if he is cleared medically having adequate pain control and doing well with physical therapy.
--- NOTE | 2019-05-01 07:25 | DCINST_ITS ---
Discharge Diet: No Restrictions Discharge Activity: May Not Drive, May not drive while taking narcotic pain medications., Use Walker May shower in (days): 2 - OK TO SHOWER OVER MEPILEX DRESSING Ice area for (Minutes): 20 - every hour while awake. Weight Bearing Status: Weight bearing as tolerated Elevate: Operative Extremity Additional Activity Instructions:: Wear elastic stockings for 2 weeks after your surgery. SEE POST OPERATIVE PINK SHEET Call your doctor if your incision/area has: Continuous Slow Oozing, Sudden Increased Bleeding, Increased Pain/ Swelling, Increased Redness, Foul Smelling Discharge Call your doctor if you observe: Fever of 101 or Higher, Coldness, Increased Pain, Numbness or Tingling, Change in Color, Chest pain, Calf discomfort, Uncontrolled pain Additional Dressing/Incision Instructions:: SEE POST OPERATIVE PINK SHEET Allergies/Adverse Reactions: Allergies ceftriaxone [From Rocephin] Allergy (Intermediate, Verified 04/11/19 11:10) Hives Medications to take at Discharge alprazolam 0.5 mg tablet 0.5 mg PO TID PRN tab 12/01/18 carvedilol 3.125 mg tablet 3.125 mg PO BID 12/01/18 furosemide 40 mg tablet 40 mg PO DAILY 12/01/18 lisinopril 2.5 mg tablet 2.5 mg PO QHS 12/01/18 omeprazole 20 mg tablet,delayed release 20 mg PO DAILY 12/01/18 spironolactone 25 mg tablet 12.5 mg PO DAILY tab 12/01/18 triamcinolone acetonide 0.5 % topical cream 1 applic TOPICAL BID #15 g 04/05/19 Acetaminophen [Tylenol] 1,000 mg PO Q8 #56 tab 05/01/19 Oxycodone [Oxyir] 5 - 10 mg PO Q4H PRN PRN #56 tab 05/01/19 Rivaroxaban [Xarelto] 10 mg PO DAILY@0600 #10 tab 05/01/19 Senna/Docusate Sodium [Senokot-S] 2 tab PO BID #30 tab 05/01/19 The following prescriptions were given: Oxycodone [Oxyir] 5 - 10 mg PO Q4H PRN PRN #56 tab PRN Reason: Pain Score 4-10/10 Prescription Printed Senna/Docusate Sodium [Senokot-S] 2 tab PO BID #30 tab Prescription Printed Acetaminophen [Tylenol] 1,000 mg PO Q8 #56 tab Prescription Printed Rivaroxaban [Xarelto] 10 mg PO DAILY@0600 #10 tab Prescription Printed Primary Care Physician: [place] [Primary Care Provider] - Test Results: Test results from this visit will be discussed in further detail at your follow- up appointment, if applicable.
--- NOTE | 2019-05-01 07:43 | PN_ITS ---
Patient Problems: Active and Suspected Problems (Last Updated 04/30/19 @ 14:45 by Cindi Ordaz MD) Status post total right knee replacement (Acute) Reason for Visit: Follow-up right TKA Subjective: Patient is a 63-year-old gentleman who underwent elective right total knee arthroplasty on 04/30/2019 the hospitalist service was consulted to assist with management of patient medical comorbidities. Objective: GENERAL: cooperative HEENT: Atraumatic; EYES; Anicteric, Normal Conjunctiva NECK; supple, normal thyroid, RESPIRATORY: Diminished to auscultation CARDIOVASCULAR: Regular S1 S2, GI: soft, normoactive bowel sounds, : No Renal angle tenderness; EXTREMITIES: No edema, no clubbing, MUSCULOSKELETAL: R Knee in surgical dressing NEURO: Awake; no lateralizing signs. SKIN: No Rash PSYCH; Flat affect Vitals/I&O's: Vital Signs Temp Pulse Resp BP Pulse Ox 98.8 F 85 18 98/57 L 95 05/01/19 01:59 05/01/19 01:59 05/01/19 01:59 05/01/19 01:59 05/01/19 01:59 Oxygen Delivery Method Room Air Weight: 146.9 kg Body Mass Index (BMI) 46.4 Intake and Output for Last 24 Hours 04/29/19 04/30/19 05/01/19 23:59 23:59 23:59 Intake Total 2535 / 2535 50 / 50 Balance 2535 / 2535 50 / 50 Laboratory Results 05/01/19 06:15: WBC 9.9, RBC 2.90 L, Hgb 9.9 L, Hct 29.8 L, MCV 102.8 H, MCH 34.1 H, MCHC 33.2, RDW Std Deviation 48.1 H, RDW Coeff of Ajcoby 12.8, Plt Count 148 L, MPV 9.4 05/01/19 06:15: Sodium Pending, Potassium Pending, Chloride Pending, Carbon Dioxide Pending, Anion Gap Pending, BUN Pending, Creatinine Pending, Est GFR (MDRD) Af Amer Pending, Est GFR (MDRD) Non-Af Pending, BUN/Creatinine Ratio Pending, Glucose Pending, Calcium Pending Current Medications Acetaminophen (Tylenol) 1,000 mg PO Q8 [facility] Last Admin: 12/03/19 06:36 Dose: 1,000 mg Documented by: Alprazolam (Xanax) 0.5 mg PO TID PRN PRN Reason: ANXIETY Carvedilol (Coreg) 3.125 mg PO BID [facility] Last Admin: 04/30/19 22:33 Dose: 3.125 mg Documented by: Dexamethasone Sodium Phosphate (Decadron) 10 mg IV X1 ONE Stop: 05/01/19 08:01 Furosemide (Lasix) 40 mg PO DAILY [facility] Last Admin: 04/30/19 14:19 Dose: Not Given Documented by: Sodium Chloride () 250 mls @ 15 mls/hr IV .[id number] PRN PRN Reason: Saline Flush Insulin Human Lispro (Humalog Kwikpen (Bkc)) 1 - 6 unit SC Q4H PRN PRN; Protocol PRN Reason: BG>/= 180, SEE PROTOCOL Lisinopril (Zestril) 2.5 mg PO QHS [facility] Last Admin: 04/30/19 22:33 Dose: 2.5 mg Documented by: Ondansetron HCl (Zofran) 4 mg IV Q8H PRN PRN PRN Reason: NAUSEA Oxycodone HCl (Oxyir) 5 - 10 mg PO Q4H PRN PRN PRN Reason: Pain Score 4-10/10 Pantoprazole Sodium (Protonix) 20 mg PO DAILY [facility] Promethazine HCl (Phenergan) 12.5 mg IM Q6H PRN PRN; Protocol PRN Reason: NAUSEA/VOMITING Rivaroxaban (Xarelto) 10 mg PO DAILY@0600 [facility] Last Admin: 05/01/19 06:36 Dose: 10 mg Documented by: Senna/Docusate Sodium (Senokot-S, Jolly-Colace) 2 tablet PO BID [facility] Last Admin: 04/30/19 22:33 Dose: 2 tablet Documented by: Sodium Chloride () 10 - 40 ml IV UD PRN PRN Reason: SALINE FLUSH [facility] Triamcinolone Acetonide (Triamcinolone Acetonide) 1 applic TOPICAL BID [facility]; Protocol Last Admin: 04/30/19 22:35 Dose: Not Given Documented by: Medical Necessity - Tobacco Use Smoking Status: Current every day smoker Tobacco Use: Cigars, Chew Assessment/Plan All Active Problems (Last Updated 04/30/19 @ 14:45 by Cindi Ordaz MD) Status post total right knee replacement (Acute) 1. Status post right total knee arthroplasty on 04/30/2019 ~Patient postoperative orders regarding pain management PT OT and DVT prophylaxis addressed by primary service 2. Anemia ?Secondary to acute blood loss anemia patient hemoglobin did drop from 13.9 on 04/11/2019 two 9.9 on 05/01/2019 3. Chronic A. fib ?Rate controlled also on systemic anticoagulation with Xarelto resumed starting 05/01/2019 4. Hypertension ~ blood pressure controlled, home medications continued with dose adjustment as needed 5. Chronic congestive heart failure (unspecified) ?Currently compensated we will continue with home meds 6. History of DVT ~ patient is on Xarelto 7. DVT prophylaxis ?Started on Xarelto starting 05/01/2019 Code Visit Inpatient E&M: 76338 Subs Hosp L2
[2019-05-01 07:50] VITALS: BP 106/63; PULSE 72; RESP 16; TEMP 37.2; O2SAT 98
[2019-05-01] MEDS: Senna/Docusate Sodium 1 Tablet 2 TABLET PO (08:01)
[2019-05-01] MEDS: Pantoprazole Sodium 20 MG Tablet PO (08:01)
[2019-05-01] MEDS: Spironolactone 25 MG Tablet 12.5 MG PO (08:01)
[2019-05-01] MEDS: dexAMETHasone 10 MG/ML Vial IV (08:01)
[2019-05-01] MEDS: Carvedilol 3.125 MG TABLET PO (08:01)
[2019-05-01] MEDS: oxyCODONE 5 MG Tablet PO (08:08)
[2019-05-01 08:15] LABS: Anion Gap 7 (5-15); BUN 28 mg/dL (7-18); BUN/Creat Ratio 19.4 RATIO (10-20); Calcium,Total 7.6 mg/dL (8.5-10.1); Chloride 101 mmol/L (98-107); Creatinine, Serum 1.44 mg/dL (0.70-1.30); EST Glomerular Filtration Rate 53 mL/min (>60); Est Glom Filt Rate - Afr Amer 64 mL/min (>60); Estimated Creatinine Clearance 54.21 ml/min; Glucose 141 mg/dL (74-106); Potassium 4.6 mmol/L (3.5-5.1); Sodium Level 134 mmol/L (136-145)
--- NOTE | 2019-05-01 10:15 | CASEMGMT ---
MARIUM BOOKER Face to Face with patient for initial transition planning/care coordination assessment. RN CM introduced self and role at [facility]. Patient sitting in chair, alert and oriented. Patient willing to participate in assessment and is able to answer all questions appropriately. Care providers, pharmacy, and demographics verified. Patient wishes to discharge home and is setup with outpatient therapy at [facility] on Tuesday. Patient states he has no further needs or concerns at this time. CM to follow for discharge planning needs that may arise. PCP: Jaya Specialists: [facility]erred [facility]acy: [facility] Insurance: MMO Prescription Benefit: yes Living Will/HPOA: none LNOK: , daughter Living Arrangements: Patient lives with in 2 story home with bed and bath on first floor. Patient independent at home. Transportation: , daughter DME/HHC: Patient has raised toilet, cane, walker, grab bars. Patient has outpatient therapy setup at [facility]. Disposition Plan: Patient to discharge home with family support, outpatient therapy, and follow-up plans in place. Luzma LOBO, RN, CM
[2019-05-01 11:45] VITALS: BP 110/64; PULSE 81; RESP 18; TEMP 37.2; O2SAT 97
== END 2019-05-01 12:40 | disposition home or self-care (01) ==
LOC: SDC 08:14 → MS3 08:14
PROVIDERS: Admitting Provider Orthopaedic Surgery; Family Provider Family Medicine; PCP Family Medicine; Referring Provider Physician Assistant; Visit Provider Orthopaedic Surgery
PROC: (CPT 27447; principal; 2019-04-30 06:50)
DX: M17.11 Unilateral primary osteoarthritis, right knee (principal); I50.9 Heart failure, unspecified; I48.20 Chronic atrial fibrillation, unspecified; I11.0 Hypertensive heart disease with heart failure; E66.9 Obesity, unspecified; Z68.42 Body mass index [BMI] 45.0-49.9, adult; Z71.3 Dietary counseling and surveillance; F17.290 Nicotine dependence, other tobacco product, uncomplicated; F17.220 Nicotine dependence, chewing tobacco, uncomplicated; F41.9 Anxiety disorder, unspecified; Z79.899 Other long term (current) drug therapy; Z86.718 Personal history of other venous thrombosis and embolism; D69.6 Thrombocytopenia, unspecified
CPT/HCPCS: 01400; 27447; 64447; 36415; 71046; 73560; 80048; 82962; 85027; 87081; 88305; 88311; 93005; 96361; 96365; 96366; 96375; 97110; 97116; 97162; 97166; 97530; 99218; 99251; 99406; C1776; J7120; G0378; G0379; G0463